=== PATIENT | male | born 1945 | race Caucasian/White ===

== ENCOUNTER → 2017-05-23 | Outpatient (CLI) | payer OTHER ==
[2017-05-23 18:14] LABS: ALBUMIN 3.8 gm/dl (3.4-5.0); ALT/SGPT 23 U/L (12-78); BLOOD UREA NITROGEN 15 mg/dl (7-18); CALCIUM 8.9 mg/dl (8.5-10.1); CARBON DIOXIDE 30 mmol/L (21-32); CREATININE 0.94 mg/dl (0.60-1.40); GLUCOSE 89 mg/dl (70-99); SODIUM 138 mmol/L (136-145)
[2017-05-23 18:16] LABS: BASO % 0.2 %; BASO ABS # 0.02 K/uL (0-0.2); EOS % 0.9 %; EOS ABS # 0.11 K/uL (0-0.5); HEMATOCRIT 44.5 % (42-52); HEMOGLOBIN 14.8 g/dL (14.0-18.0); IG# 0.03 K/uL (0.00-0.02); LYMPH % 14.9 %; LYMPH ABS # 1.84 K/uL (1.2-3.4); MEAN CELL VOLUME 93.5 fL (80-100); MEAN CORPUSCULAR HEMOGLOBIN 31.1 pg (25-34); MEAN CORPUSCULAR HGB CONC 33.3 g/dl (32-36); MEAN PLATELET VOLUME 12.3 fL (7.4-10.4); MONO % 8.2 %; MONO ABS # 1.01 K/uL (0.11-0.59); NEUT % 75.6 %; NEUT ABS # 9.33 K/uL (1.4-6.5); PLATELET COUNT 149 K/uL (130-400); RED CELL DISTRIBUTION WIDTH CV 13.7 % (11.5-14.5); RETIC COUNT % 1.4 % (0.5-2.0); WHITE BLOOD COUNT 12.34 K/uL (4.8-10.8)
[2017-05-23 18:22] LABS: ALKALINE PHOSPHATASE 67 U/L (45-117); AST/SGOT 22 U/L (15-37); PHOSPHORUS 2.9 mg/dl (2.5-4.9); TOTAL PROTEIN 7.2 gm/dl (6.4-8.2)
== END | disposition home or self-care (01) ==
LOC: C.LABMFLN 11:24
DX: I11.9 Hypertensive heart disease without heart failure (principal); E78.00 Pure hypercholesterolemia, unspecified; E03.9 Hypothyroidism, unspecified; Z12.5 Encounter for screening for malignant neoplasm of prostate

== ENCOUNTER → 2017-05-28 | Outpatient (CLI) | payer OTHER ==
--- NOTE | 2017-05-28 10:46 | DIAGNOSTIC IMAGING REPORT ---
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 There is no pneumothorax, large pleural effusion, focal airspace consolidation or overt pulmonary edema. Mild blunting of the costophrenic angles is likely secondary to atelectasis or scarring. Bones of the chest appear grossly intact. Multilevel endplate spurring of the spine. IMPRESSION: Mild cardiomegaly without acute process. The above report was generated using voice recognition software. It may contain grammatical, syntax or spelling errors. Electronically signed by: Mookie Franco M.D. 05/28/2017 10:45 AM Dictated Date/Time: 05/28/2017 10:43 AM
--- NOTE | 2017-05-28 14:06 | DIAGNOSTIC IMAGING REPORT ---
WHOLE-BODY NUCLEAR BONE SCAN CLINICAL HISTORY: Low back pain. Hip pain. COMPARISON STUDY: Chest x-ray dated 05/28/2017. TECHNIQUE: Three hours following the IV administration of 26.3 mCi of technetium 99m MDP, whole body nuclear bone scan was performed in the anterior and posterior projections. FINDINGS: There is no abnormal osseous tracer deposition identified typical in appearance for bony metastatic disease. There are foci of abnormal tracer deposition seen within the right posterior 10th and 11th ribs. After mild within 2 adjacent ribs suggests bilateral rib fractures. Mild activity within the right aspect of the lower thoracic spine may be related to degenerative versus postoperative change. Mild and typically degenerative uptake is identified in the shoulders, knees, and ankles. There is expected excreted activity within the renal collecting system and bladder. IMPRESSION: 1. There is intense focal abnormal activity identified within the right posterior 10th and 11th ribs. This suggests rib fractures. Clinical correlation will be required. 2. Mild activity within the right aspect of the lower thoracic spine at these levels could be related to posttraumatic versus degenerative change. 3. No additional foci of significantly abnormal activity are seen. Electronically signed by: Khanh Marsh M.D. 05/28/2017 2:05 PM Dictated Date/Time: 05/28/2017 2:00 PM
== END | disposition home or self-care (01) ==
LOC: C.NUCL 09:43
DX: E03.9 Hypothyroidism, unspecified (principal); I11.9 Hypertensive heart disease without heart failure; E78.00 Pure hypercholesterolemia, unspecified; M54.5 Low back pain; M25.551 Pain in right hip